=== PATIENT | male | born 1965 | race Hispanic/Latino ===

== ENCOUNTER 2018-03-14 12:54 | Emergency (ER) | payer SELFPAY ==
[2018-03-14] MEDS ORDERED: NA CHLORIDE 0.9% 1,000 ML ONE (13:48)
--- NOTE | 2018-03-14 14:00 | EKG ---
Test Date: 2018-03-14 Test Time: 13:51:58 Property Valuer: PIPO MEASUREMENT RESULTS: Intervals: Rate: 82 MI: 166 QRSD: 86 QT: 346 QTc: 404 [place]: P: 56 MI: 166 QRS: 68 T: 59 INTERPRETIVE STATEMENTS: Normal sinus rhythm Normal ECG No previous ECG available for comparison Electronically Signed On 03-14-18 13:59:56 COACH OPERATOR by Donn Mayes
[2018-03-14 14:07] LABS: ALT/SGPT 26 U/L (12-78); AST/SGOT 13 U/L (15-37); Albumin 3.3 g/dL (3.4-5.0); Alkaline Phosphatase 65 U/L (45-117); BUN Blood Urea Nitrogen 18 mg/dL (7-18); Bicarbonate 23 mmol/L (21-32); Bilirubin Direct 0.4 mg/dL (0-0.2); Bilirubin Total 1.2 mg/dL (0.2-1.0); Creatine Phosphokinase 35 U/L (39-308); Glucose Level 228 mg/dL (74-106); Lipase 153 U/L (73-393); Magnesium 2.2 mg/dL (1.8-2.4); Phosphorus 3.1 mg/dL (2.5-4.9); Potassium 3.6 mmol/L (3.5-5.1); Protein, Total 8.8 g/dL (6.4-8.2); Sodium Level 131 mmol/L (136-145); Troponin (Emerg Dept Use Only) < 0.02 ng/mL (0.0-0.045); Uric Acid 2.6 mg/dL (3.5-7.2)
[2018-03-14 14:22] LABS: Absolute Monocytes 0.8 K/uL (0.1-1.3); Absolute Neutrophil 8.4 K/uL (1.8-8.0); Basophils % 0.8 % (0-1.3); Eosinophils % 0.3 % (0-4.4); Hematocrit 49.8 % (39.6-49.0); Lymphocytes % 9.5 % (15.3-44.8); MCH 33.2 pg (27.0-35.0); MPV 8.8 fL (7.6-11.3); Monocytes % 7.8 % (3.3-12.3)
[2018-03-14] MEDS ORDERED: KETOROLAC 30 MG/ML INJ ONE (14:23)
[2018-03-14] MEDS ORDERED: HYDROCODONE/APAP 5/325 MG TAB ONE (14:23)
--- NOTE | 2018-03-14 14:28 | RAD REPORT ---
EXAM DESCRIPTION: RAD - Chest Single View - 03/14/2018 2:08 pm CLINICAL HISTORY: CHEST PAIN Chest pain. COMPARISON: No comparisons FINDINGS: Portable technique limits examination quality. The lungs are grossly clear. The heart is normal in size. No displaced fractures. IMPRESSION: No acute intrathoracic process suspected.
[2018-03-14] MEDS ORDERED: LISINOPRIL 10 MG TAB ONE (14:30)
--- NOTE | 2018-03-14 14:33 | ER ---
Nurse's Notes [facility] Name: Darrian Camarillo Age: 53 yrs Sex: Male : 1965 Arrival Date: 03/14/2018 Time: 13:03 Bed 23 Private MD: None, None Diagnosis: Essential (primary) hypertension;Diabetes mellitus due to underlying condition Presentation: 03/14 13:07 Presenting complaint: Patient states: "I think I got gout, this happened 2 years ago aj1 and they gave me some pills and it helped" Patient reports pain to bilateral arms and legs. States that he is unable to walk due to the pain. Transition of care: patient was not received from another setting of care. Onset of symptoms was March 08, 2018. Risk Assessment: Do you want to hurt yourself or someone else? Patient reports no desire to harm self or others. Initial Sepsis Screen: Does the patient meet any 2 criteria? No. Patient's initial sepsis screen is negative. Does the patient have a suspected source of infection? No. Patient's initial sepsis screen is negative. Care prior to arrival: None. 13:07 Method Of Arrival: Wheelchair aj1 13:07 Acuity: TONY 4 aj1 Triage Assessment: 13:08 General: Appears in no apparent distress. comfortable, Behavior is calm, cooperative, aj1 appropriate for age. Pain: Complains of pain in right arm, left arm, right leg and left leg Pain currently is 5 out of 10 on a pain scale. Neuro: Level of Consciousness is awake, alert, obeys commands. Cardiovascular: Patient's skin is warm and dry. Respiratory: Airway is patent Respiratory effort is even, unlabored, Respiratory pattern is regular, symmetrical. Historical: - Allergies: 13:08 No Known Allergies; aj1 - Home Meds: 13:08 None [Active]; aj1 - PMHx: 13:08 Gout; aj1 - PSHx: 13:08 None; aj1 - Immunization history:: Flu vaccine is up to date. - Social history:: Smoking status: Patient/guardian denies using tobacco. - Ebola Screening: : Patient denies travel to an Ebola-affected area in the 21 days before illness onset. Screenin:15 Abuse screen: Denies threats or abuse. Denies injuries from another. Nutritional kr2 screening: No deficits noted. Tuberculosis screening: No symptoms or risk factors identified. Fall Risk Gait- Impaired (20 pts.). Assessment: 13:15 General: Appears in no apparent distress. uncomfortable, Behavior is calm, cooperative. kr2 Pain: Complains of pain in arms and legs Pain does not radiate. Pain currently is 10 out of 10 on a pain scale. Quality of pain is described as aching, squeezing, Is continuous, Alleviated by rest, Aggravated by increased activity, repositioning, weight bearing. Neuro: Level of Consciousness is awake, alert, obeys commands, Oriented to person, place, time, situation. Cardiovascular: Patient's skin is warm and dry. Rhythm is sinus rhythm. Respiratory: Airway is patent Respiratory effort is even, unlabored, Respiratory pattern is regular, symmetrical. GI: Abdomen is round Patient currently denies diarrhea, nausea, vomiting. EENT: Nares are clear bilaterally Oral mucosa is moist. Derm: Skin is intact, Skin is dry, Skin is jaundiced, Skin temperature is warm. Musculoskeletal: Circulation, motion, and sensation intact. Range of motion: limited in all extremities, Patient states he was unable to move his arms yesterday and had to stay in bed, today he complains of limited mobility and pain in all extremities. 14:24 Reassessment: Patient appears in no apparent distress at this time. Patient and/or kr2 family updated on plan of care and expected duration. Pain level reassessed. Patient is alert, oriented x 3, equal unlabored respirations, skin warm/dry/pink. 14:52 Reassessment: Patient appears in no apparent distress at this time. Patient and/or kr2 family updated on plan of care and expected duration. Pain level reassessed. Patient is alert, oriented x 3, equal unlabored respirations, skin warm/dry/pink. Patient states pain is decreased. Vital Signs: 13:08 BP 194 / 107; Pulse 95; Resp 20; Temp 98.4; Pulse Ox 100% on R/A; Weight 90.72 kg (R); aj1 Height 5 ft. 6 in. (167.64 cm); Pain 5/10; 14:18 BP 178 / 116; Pulse 88; Resp 19; Pulse Ox 97% on R/A; kr2 14:54 BP 170 / 104; Pulse 89; Resp 17; Pulse Ox 99% on R/A; kr2 13:08 Body Mass Index 32.28 (90.72 kg, 167.64 cm) aj1 ED Course: 13:03 Patient arrived in ED. mr 13:04 None, None is Private Physician. mr 13:06 Rebecca Plasencia FNP-C [facility]. snw 13:06 Ino Manning MD is Attending Physician. snw 13:08 Triage completed. aj1 13:08 Arm band placed on Patient placed in an exam room. aj1 13:15 Patient has correct armband on for positive identification. Bed in low position. Call kr2 light in reach. Side rails up X2. Adult w/ patient. golf teacher on. Pulse ox on. NIBP on. Door closed. Warm blanket given. Head of bed elevated. 13:16 Angela Nunez, CORY is Primary Nurse. kr2 13:35 Inserted saline lock: 20 gauge in right forearm, using aseptic technique. Blood kr2 collected. 14:01 EKG done, by school bus technician. reviewed by Rebecca WEN. sm3 14:09 Chest Single View XRAY In Process Unspecified. EDMS 14:53 No provider procedures requiring assistance completed. IV discontinued, intact, kr2 bleeding controlled, No redness/swelling at site. Pressure dressing applied. Administered Medications: Discontinued: NS 0.9% 1000 ml IV at 125 ml/hr continuous 14:04 Drug: NS 0.9% 500 ml Route: IV; Rate: bolus; Site: right forearm; kr2 14:32 Follow up: Response: No adverse reaction; IV Status: Completed infusion kr2 14:17 Drug: TORadol 30 mg Route: IVP; Site: right forearm; kr2 14:33 Follow up: Response: No adverse reaction; Pain is decreased kr2 14:18 Drug: [place] 5 mg-325 mg 1 tabs Route: PO; kr2 14:50 Follow up: Response: No adverse reaction; Pain is decreased kr2 14:23 Drug: Lisinopril 10 mg Route: PO; kr2 14:51 Follow up: Response: No adverse reaction kr2 14:32 Drug: NS 0.9% 1000 ml Route: IV; Rate: 125 ml/hr; Site: right forearm; kr2 14:52 Follow up: IV Status: Order to discontinue infusion kr2 14:52 Follow up: Response: No adverse reaction kr2 14:50 Drug: metFORMIN 500 mg Route: PO; kr2 14:51 Follow up: Response: Medication administered at discharge. kr2 Outcome: 14:32 Discharge ordered by . snw 14:53 Discharged to home via wheelchair, with family. kr2 14:53 Condition: stable 14:53 Discharge instructions given to patient, family, Instructed on discharge instructions, follow up and referral plans. medication usage, Demonstrated understanding of instructions, follow-up care, medications, Prescriptions given X 3. 14:55 Patient left the ED. kr2 Signatures: Dispatcher [employer] EDMS Marleen Rahman RN RN aj1 Rebecca Plasencia, DIAL MAKER-C DIAL MAKER-Csnw Blaire Wu mr Angela Nunez RN RN kr2 Rosmery Feldman 3
--- NOTE | 2018-03-14 14:33 | EDPHYS ---
Physician Documentation [facility] Name: Darrian Camarillo Age: 53 yrs Sex: Male : 1965 Arrival Date: 03/14/2018 Time: 13:03 Bed 23 Private MD: None, None ED Physician Ino Manning HPI: 03/14 14:04 This 53 yrs old Male presents to ER via Wheelchair with complaints of Gout. snw 14:04 upper and lower extremity pain - hx of same 3 yrs ago and dx with gout. Onset: The snw symptoms/episode began/occurred gradually, 6 day(s) ago. Severity of symptoms: At their worst the symptoms were moderate. The patient has experienced a previous episode, approximately 3 years ago. The patient has not recently seen a physician, and does not have an established primary care provider. Historical: - Allergies: 13:08 No Known Allergies; aj1 - Home Meds: 13:08 None [Active]; aj1 - PMHx: 13:08 Gout; aj1 - PSHx: 13:08 None; aj1 - Immunization history:: Flu vaccine is up to date. - Social history:: Smoking status: Patient/guardian denies using tobacco. - Ebola Screening: : Patient denies travel to an Ebola-affected area in the 21 days before illness onset. ROS: 14:02 Constitutional: Negative for fever, chills, and weight loss, Eyes: Negative for injury, snw pain, redness, and discharge, ENT: Negative for injury, pain, and discharge, Neck: Negative for injury, pain, and swelling, Cardiovascular: Negative for chest pain, palpitations, and edema, Respiratory: Negative for shortness of breath, cough, wheezing, and pleuritic chest pain, Abdomen/GI: Negative for abdominal pain, nausea, vomiting, diarrhea, and constipation, Back: Negative for injury and pain, : Negative for injury, bleeding, discharge, and swelling, Skin: Negative for injury, rash, and discoloration, Neuro: Negative for headache, weakness, numbness, tingling, and seizure. 14:02 MS/extremity: Positive for pain, of the bilateral arms and left leg. Exam: 14:02 Head/Face: Normocephalic, atraumatic. Eyes: Pupils equal round and reactive to light, snw extra-ocular motions intact. Lids and lashes normal. Conjunctiva and sclera are non-icteric and not injected. Cornea within normal limits. Periorbital areas with no swelling, redness, or edema. ENT: Nares patent. No nasal discharge, no septal abnormalities noted. Tympanic membranes are normal and external auditory canals are clear. Oropharynx with no redness, swelling, or masses, exudates, or evidence of obstruction, uvula midline. Mucous membranes moist. Neck: Trachea midline, no thyromegaly or masses palpated, and no cervical lymphadenopathy. Supple, full range of motion without nuchal rigidity, or vertebral point tenderness. No Meningismus. Chest/axilla: Normal chest wall appearance and motion. Nontender with no deformity. No lesions are appreciated. Cardiovascular: Regular rate and rhythm with a normal S1 and S2. No gallops, murmurs, or rubs. Normal PMI, no JVD. No pulse deficits. Respiratory: Lungs have equal breath sounds bilaterally, clear to auscultation and percussion. No rales, rhonchi or wheezes noted. No increased work of breathing, no retractions or nasal flaring. Abdomen/GI: Soft, non-tender, with normal bowel sounds. No distension or tympany. No guarding or rebound. No evidence of tenderness throughout. Back: No spinal tenderness. No costovertebral tenderness. Full range of motion. Skin: Warm, dry with normal turgor. Normal color with no rashes, no lesions, and no evidence of cellulitis. Neuro: Awake and alert, GCS 15, oriented to person, place, time, and situation. Cranial nerves II-XII grossly intact. Motor strength 5/5 in all extremities. Sensory grossly intact. Cerebellar exam normal. Normal gait. Psych: Awake, alert, with orientation to person, place and time. Behavior, mood, and affect are within normal limits. 14:02 Constitutional: The patient appears alert, awake. 14:02 Musculoskeletal/extremity: Extremities: grossly normal except: bilateral hands with edema, tenderness to left lower ext, ROM: limited active range of motion due to pain, Circulation is intact in all extremities. Sensation intact. Vital Signs: 13:08 BP 194 / 107; Pulse 95; Resp 20; Temp 98.4; Pulse Ox 100% on R/A; Weight 90.72 kg (R); aj1 Height 5 ft. 6 in. (167.64 cm); Pain 5/10; 14:18 BP 178 / 116; Pulse 88; Resp 19; Pulse Ox 97% on R/A; kr2 14:54 BP 170 / 104; Pulse 89; Resp 17; Pulse Ox 99% on R/A; kr2 13:08 Body Mass Index 32.28 (90.72 kg, 167.64 cm) aj1 MDM: 13:11 Patient medically screened. snw 14:35 Data reviewed: vital signs, nurses notes. Data interpreted: Pulse oximetry: on room air snw is 97 %. Interpretation: normal. Counseling: I had a detailed discussion with the patient and/or guardian regarding: the historical points, exam findings, and any diagnostic results supporting the discharge/admit diagnosis, the presence of at least one elevated blood pressure reading (>120/80) during this emergency department visit, lab results, radiology results, the need for outpatient follow up, for definitive care, to return to the emergency department if symptoms worsen or persist or if there are any questions or concerns that arise at home. 03/14 13:25 Order name: Basic Metabolic Panel; Complete Time: 14:08 snw 03/14 13:25 Order name: CBC with Diff; Complete Time: 14:30 snw 03/14 13:25 Order name: Hepatic Function; Complete Time: 14:08 snw 03/14 13:25 Order name: Lipase; Complete Time: 14:08 snw 03/14 13:25 Order name: CPK; Complete Time: 14:08 snw 03/14 13:25 Order name: Uric Acid; Complete Time: 14:08 snw 03/14 13:25 Order name: Lactate; Complete Time: 14:30 snw 03/14 13:25 Order name: Magnesium; Complete Time: 14:08 snw 03/14 13:25 Order name: Phosphorus; Complete Time: 14:08 snw 03/14 13:25 Order name: LDH; Complete Time: 14:08 snw 03/14 13:25 Order name: AMMONIA; Complete Time: 14:08 snw 03/14 13:25 Order name: Chest Single View XRAY; Complete Time: 14:30 snw 03/14 13:25 Order name: Troponin (emerg Dept Use Only); Complete Time: 14:08 snw 03/14 13:25 Order name: IV Saline Lock; Complete Time: 13:39 snw 03/14 13:25 Order name: Labs collected and sent; Complete Time: 13:39 snw 03/14 13:25 Order name: EKG; Complete Time: 13:26 snw 03/14 13:25 Order name: EKG - Nurse/Tech; Complete Time: 14:03 snw 03/14 14:09 Order name: Recheck B/P; Complete Time: 14:18 snw Administered Medications: Discontinued: NS 0.9% 1000 ml IV at 125 ml/hr continuous 14:04 Drug: NS 0.9% 500 ml Route: IV; Rate: bolus; Site: right forearm; kr2 14:32 Follow up: Response: No adverse reaction; IV Status: Completed infusion kr2 14:17 Drug: TORadol 30 mg Route: IVP; Site: right forearm; kr2 14:33 Follow up: Response: No adverse reaction; Pain is decreased kr2 14:18 Drug: [place] 5 mg-325 mg 1 tabs Route: PO; kr2 14:50 Follow up: Response: No adverse reaction; Pain is decreased kr2 14:23 Drug: Lisinopril 10 mg Route: PO; kr2 14:51 Follow up: Response: No adverse reaction kr2 14:32 Drug: NS 0.9% 1000 ml Route: IV; Rate: 125 ml/hr; Site: right forearm; kr2 14:52 Follow up: IV Status: Order to discontinue infusion kr2 14:52 Follow up: Response: No adverse reaction kr2 14:50 Drug: metFORMIN 500 mg Route: PO; kr2 14:51 Follow up: Response: Medication administered at discharge. kr2 Disposition: 15:47 Co-signature as Attending Physician, Ino Manning MD I agree with the assessment and jocy plan of care. Disposition: 03/14/18 14:32 Discharged to Home. Impression: Essential (primary) hypertension, Diabetes mellitus due to underlying condition. - Condition is Stable. - Discharge Instructions: Joint Pain, Diabetes and Sick Day Management, Basic Carbohydrate Counting for Diabetes Mellitus, Hypertension, How to Take Your Blood Pressure, Proe-pr-Jdol, DASH Eating Plan, Rehydration, Adult, Managing Your Hypertension, Type 2 Diabetes Mellitus, Self Care, Adult. - Prescriptions for Glucophage 500 mg Oral Tablet - take 1 tablet by ORAL route At bedtime; 20 tablet. Tylenol- Codeine #4 300-60 mg Oral Tablet - take 1 tablet by ORAL route every 6 hours As needed; 6 tablet. Lisinopril 10 mg Oral Tablet - take 1 tablet by ORAL route once daily; 20 tablet. - Work release form, Medication Reconciliation Form, Thank You Letter, Antibiotic Education, Prescription Opioid Use form. - Follow up: Private Physician; When: 2 - 3 days; Reason: Recheck today's complaints, Continuance of care, Re-evaluation by your physician. Follow up: Emergency Department; When: As needed; Reason: Worsening of condition. Signatures: Dispatcher [employer] EDMarleen Ascencio RN RN Ino Ace MD MD cha Therrien, Shelly, BODY DESIGNER-C BODY DESIGNER-[place] Angela Nunez RN RN kr2 Corrections: (The following items were deleted from the chart) 14:55 14:32 03/14/2018 14:32 Discharged to Home. Impression: Essential (primary) kr2 hypertension; Diabetes mellitus due to underlying condition. Condition is Stable. Forms are Medication Reconciliation Form, Thank You Letter, Antibiotic Education, Prescription Opioid Use. Follow up: Private Physician; When: 2 - 3 days; Reason: Recheck today's complaints, Continuance of care, Re-evaluation by your physician. Follow up: Emergency Department; When: As needed; Reason: Worsening of condition. snw
[2018-03-14] MEDS ORDERED: METFORMIN HCL 500 MG TAB ONE (14:52)
== END 2018-03-14 14:55 | disposition home or self-care (01) ==
LOC: ER 12:54
DX: M10.9 Gout, unspecified (principal); E08.9 Diabetes mellitus due to underlying condition without complications; I10 Essential (primary) hypertension
CPT/HCPCS: 36415; 71045; 80048; 80076; 82140; 82550; 83605; 83615; 83690; 83735; 84100; 84484; 84550; 85025; 93005; 96361; 96374; 99285; J7030

== ENCOUNTER 2018-04-16 16:49 | Emergency (ER) | payer SELFPAY ==
[2018-04-16] MEDS ORDERED: KETOROLAC 30 MG/ML INJ ONE (17:59)
--- NOTE | 2018-04-16 19:05 | RAD REPORT ---
EXAM DESCRIPTION: USExtremity Venous Uni Ltd04/16/2018 6:52 pm CLINICAL HISTORY: left leg pain and swelling. COMPARISON: None. FINDINGS: Left common femoral, superficial femoral, popliteal and posterior tibial veins are compre ssible and demonstrate augmentation. Doppler demonstrates good flow. IMPRESSION: No evidence of deep venous thrombosis involving the left lower extremity.
--- NOTE | 2018-04-16 19:05 | RAD REPORT ---
EXAM DESCRIPTION: USExtremity Venous Uni Ltd04/16/2018 6:52 pm CLINICAL HISTORY: Right arm pain and swelling COMPARISON: None FINDINGS: The right internal jugular, right subclavian, right cephalic, right axillary, right brach ial, right basilic, right ulnar and right radial veins are generally compressible and demonstrate au gmentation. Doppler demonstrates good flow. IMPRESSION: No evidence of thrombus within the veins of the right upper extremity
--- NOTE | 2018-04-16 19:40 | ER ---
Nurse's Notes [facility] Name: Darrian Camarillo Age: 53 yrs Sex: Male : 1965 Arrival Date: 04/16/2018 Time: 16:50 Bed 19 Private MD: None, None Diagnosis: Pain in left leg;Edema, unspecified Presentation: 04/16 17:07 Presenting complaint: Patient states: "I was seen here about a month ago for left leg aa5 pain and right hand pain and was sent home with pills for diabetes and high blood pressure". Pt c/o pain to left leg pain and right hand pain. Pt states "I came back to get blood work done because my doctor wants it but they are closed for [place]". Transition of care: patient was not received from another setting of care. Onset of symptoms was February 2018. Risk Assessment: Do you want to hurt yourself or someone else? Patient reports no desire to harm self or others. Initial Sepsis Screen: Does the patient meet any 2 criteria? No. Patient's initial sepsis screen is negative. Does the patient have a suspected source of infection? No. Patient's initial sepsis screen is negative. Care prior to arrival: None. 17:07 Method Of Arrival: Ambulatory aa5 17:07 Acuity: TONY 3 aa5 Historical: - Allergies: 17:10 No Known Allergies; aa5 - PMHx: 17:10 Diabetes - NIDDM; Hypertension; aa5 - PSHx: 17:10 None; aa5 - Immunization history:: Adult Immunizations unknown. - Social history:: Smoking status: Patient uses tobacco products, smokes one-half pack cigarettes per day. - Ebola Screening: : No symptoms or risks identified at this time. Screenin:50 Abuse screen: Denies threats or abuse. Nutritional screening: No deficits noted. em Tuberculosis screening: No symptoms or risk factors identified. Fall Risk None identified. Assessment: 17:50 General: Appears in no apparent distress. uncomfortable, Behavior is calm, cooperative, em Denies fever. Pain: Complains of pain in posterior aspect of left knee Pain currently is 8 out of 10 on a pain scale. Neuro: Level of Consciousness is awake, alert, obeys commands, Oriented to person, place, time, situation. Cardiovascular: Capillary refill < 3 seconds Patient's skin is warm and dry. Respiratory: Airway is patent Respiratory effort is even, unlabored, Respiratory pattern is regular, symmetrical, Denies shortness of breath. GI: Abdomen is flat. Derm: Skin is intact, is healthy with good turgor, Skin is pink, warm \\T\\ dry. Musculoskeletal: Range of motion: intact in all extremities. 17:55 General: The previous assessment is accurate, call light remains within reach. . ss 18:55 Reassessment: Patient appears in no apparent distress at this time. Patient and/or em family updated on plan of care and expected duration. Pain level reassessed. Patient is alert, oriented x 3, equal unlabored respirations, skin warm/dry/pink. Patient states feeling better. 19:10 Reassessment: Patient appears in no apparent distress at this time. Patient and/or rr5 family updated on plan of care and expected duration. Pain level reassessed. reassess by rebecca RETAIL SALES [employer]CH[employer] DEVELOPMENT. patient feeling better. explained the result for discharge. Patient states feeling better. Patient states symptoms have improved. 19:10 Reassessment: Patient appears in no apparent distress at this time. Patient and/or rr5 family updated on plan of care and expected duration. Pain level reassessed. discharge instruction and prescription given and explained with no complaints made. Patient states feeling better. Patient states symptoms have improved. Vital Signs: 17:11 BP 142 / 98; Pulse 86; Resp 18 S; Temp 98.4(TE); Pulse Ox 98% on R/A; Weight 88.45 kg aa5 (R); Height 5 ft. 4 in. (162.56 cm) (R); Pain 5/10; 18:55 BP 137 / 99; Pulse 87; Resp 16; Pulse Ox 99% on R/A; Pain 3/10; em 19:50 BP 135 / 88; Pulse 85; Resp 17; Pulse Ox 99% ; rr5 17:11 Body Mass Index 33.47 (88.45 kg, 162.56 cm) aa5 ED Course: 16:50 Patient arrived in ED. sb2 16:50 None, None is Private Physician. sb2 17:07 Arm band placed on. aa5 17:10 Triage completed. aa5 17:12 Wyatt Mendoza, GÓMEZ is Primary Nurse. em 17:15 Rebecca Plasencia FNP-C is PHCP. snw 17:15 Ino Manning MD is Attending Physician. snw 17:50 Patient has correct armband on for positive identification. Placed in gown. Bed in low em position. Call light in reach. 18:30 Ultrasound completed. Patient tolerated well. sg3 18:51 US Extremity Venous Unilateral Ltd In Process Unspecified. EDMS 18:51 US Extremity Venous Unilateral Ltd In Process Unspecified. EDMS 19:05 No provider procedures requiring assistance completed. em 19:05 Patient did not have IV access during this emergency room visit. em Administered Medications: 18:05 Drug: TORadol 60 mg Route: IM; Site: right gluteus; em Outcome: 19:39 Discharge ordered by MD. snw 20:00 Discharged to home ambulatory. rr5 20:00 Condition: stable 20:00 Discharge instructions given to patient, Instructed on discharge instructions, follow up and referral plans. medication usage, Demonstrated understanding of instructions, follow-up care, medications, Prescriptions given X 2. 20:16 Patient left the ED. rr5 Signatures: Dispatcher [employer] EDWA Rebecca Plasencia, SIGNAL SYSTEM TESTING MAINTAINER-C SIGNAL SYSTEM TESTING MAINTAINER-Csnw Wyatt Mendoza, SCRUM PRODUCT OWNER SCRUM PRODUCT OWNER Lupe Garland, RN RN aa5 Codi Sheikh, RN RN Amberly Del Toro sg3 Radha Vásquez sb2 Pineda Tomlinson, RN RN rr5
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
== END 2018-04-16 20:16 | disposition home or self-care (01) ==
LOC: ER 16:49
DX: M79.605 Pain in left leg (principal); R60.9 Edema, unspecified; F17.210 Nicotine dependence, cigarettes, uncomplicated
CPT/HCPCS: 93971; 96372; 99283

== ENCOUNTER 2019-08-05 00:35 | Emergency (ER) | payer SELFPAY ==
[2019-08-05] MEDS ORDERED: NA CHLORIDE 0.9% 1,000 ML ONE (01:01)
[2019-08-05] MEDS ORDERED: TETANUS & DIPHTHERIA TOX,ADULT 0.5 ML VIAL ONE (01:01)
[2019-08-05 01:23] LABS: Absolute Lymphocytes (CBC) 1.3 K/uL (0.7-4.9); Basophils % 0.4 % (0-1.3); Hematocrit 49.1 % (39.6-49.0); RBC Red Blood Cell Count 5.31 M/uL (4.33-5.43)
[2019-08-05 01:30] LABS: BUN Blood Urea Nitrogen 14 mg/dL (7-18); Bicarbonate 22 mmol/L (21-32); Glucose Level 126 mg/dL (74-106); Potassium 3.7 mmol/L (3.5-5.1); Sodium Level 139 mmol/L (136-145)
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
[2019-08-05] MEDS ORDERED: MORPHINE 4 MG/ML SYR ONE (02:19)
[2019-08-05] MEDS ORDERED: ONDANSETRON 4 MG/2 ML VIAL ONE (02:19)
[2019-08-05 03:25] VITALS: TEMP 97.7
[2019-08-05 03:28] VITALS: BP 140/97; O2SAT 99
--- NOTE | 2019-08-05 11:23 | RAD REPORT ---
EXAM DESCRIPTION: CT - Facial Bones W/ Mpr - 08/05/2019 6:28 am CLINICAL HISTORY: 54 years Male, FACIAL PAIN COMPARISON: None. TECHNIQUE: Multiple, helical axial tomographic images were obtained of the facial bones without intr avenous contrast. Coronal and sagittal reformatted images were obtained. This exam was performed acco rding to our departmental dose-optimization program, which includes automated exposure control, adjus tment of the mA and/or kV according to patient size and/or use of iterative reconstruction technique. FINDINGS: There are age-indeterminate minimally displaced fractures of the bilateral nasal bones, fr ontal processes of the maxilla, and anterior nasal septum. There are chronic appearing small defects of the bilateral medial orbital lizarraga with small amount of fat herniating within the ethmoid sinuses. Flattened and irregular appearance of the left globe is demonstrated which appears hyperdense. There is hypodensity within the left inferior rectus muscle which may reflect fatty changes. There is mild left periorbital soft tissue swelling. There is mild soft tissue swelling near the left mandibular body. Mastoid air cells and middle ear spaces are clear. IMPRESSION: 1. Flattened and irregular appearance of the left globe compatible with global rupture o f uncertain chronicity, clinical correlation recommended. 2. Age-indeterminate fractures of the bilateral nasal bones, frontal processes of the maxilla, and an terior nasal septum Electronically signed by: Fidencio Cortes MD 08/05/2019 1:40 AM CDT Due to temporary technical issues with the PACS/Fluency reporting system, reports are being signed by the in house radiologist as a courtesy to ensure prompt reporting. The interpreting radiologist is f ully responsible for the content of the report..
--- NOTE | 2019-08-05 11:48 | RAD REPORT ---
EXAM DESCRIPTION: CT - Head C Spine Mpr Wo Con - 08/05/2019 6:27 am CLINICAL HISTORY: The patient is 54 years old and is Male; PAIN TECHNIQUE: Axial computed tomography images of the head/brain and cervical spine without intravenous contrast. Sagittal and coronal reformatted images were created and reviewed. This CT exam was pe rformed using one or more of the following dose reduction techniques: automated exposure control, a djustment of the mA and/or kV according to patient size, and/or use of iterative reconstruction techn ique. COMPARISON: No relevant prior studies available. FINDINGS: BRAIN: Unremarkable. No hemorrhage. No significant white matter disease. No edema. VENTRICLES: Unremarkable. No ventriculomegaly. SKULL: No acute fracture. SINUSES: Unremarkable as visualized. No acute sinusitis. MASTOID AIR CELLS: Unremarkable as visualized. No mastoid effusion. ORBITS: The left globe is deformed and hyperdense. VERTEBRAE: The vertebral body heights and alignment are maintained. No acute fracture. DISCS/SPINAL CANAL/NEURAL FORAMINA: Minimal intervertebral disc space narrowing and osteophyte fo rmation at C5-C6 and C6-C7 is present. The remaining intervertebral disc spaces are maintained. There is no canal narrowing or neural foraminal stenosis. SOFT TISSUES: The soft tissues are normal. LUNG APICES: Unremarkable as visualized. IMPRESSION: 1. No acute intracranial findings. 2. No fracture or malalignment of cervical spine. 3. Deformity hyperdense left globe. Correlation with patient's history and follow-up as indicated i s recommended. Electronically signed by: Rosalie Russ MD 08/05/2019 1:24 AM CDT Due to temporary technical issues with the PACS/Fluency reporting system, reports are being signed by the in house radiologist as a courtesy to ensure prompt reporting. The interpreting radiologist is f ully responsible for the content of the report.
== END 2019-08-05 03:17 | disposition short-term general hospital (02) ==
LOC: ER 00:35
PROC: 0JQ00ZZ Repair Scalp Subcutaneous Tissue and Fascia, Open Approach (ICD-10-PCS; principal; 2019-08-05)
DX: S05.22XA Ocular laceration and rupture with prolapse or loss of intraocular tissue, left eye, initial encounter (principal); H21.02 Hyphema, left eye; Y04.2XXA Assault by strike against or bumped into by another person, initial encounter; Y93.9 Activity, unspecified; Y92.9 Unspecified place or not applicable; Z23 Encounter for immunization; I10 Essential (primary) hypertension; F17.210 Nicotine dependence, cigarettes, uncomplicated
CPT/HCPCS: 36415; 70450; 70486; 72125; 76377; 80048; 80320; 85025; 86850; 86900; 86901; 90471; 90714; 96361; 96374; 96375; 99285; J2405; J7030